=== PATIENT | female | born 2000 | race Caucasian/White ===

== ENCOUNTER 2021-11-18 14:55 | Inpatient (IN) | payer OTHER ==
[2021-11-18 17:07] VITALS: BMI 20.7
[2021-11-18] MEDS ORDERED: cloNIDine HCL 0.1 MG TABLET PO PRN (19:39)
[2021-11-18] MEDS ORDERED: BENZOCAINE/MENTHOL (CHLORASEPTIC ) LOZENGE MM PRN (19:39)
[2021-11-18] MEDS ORDERED: LOPERAMIDE HCL 2 MG CAPSULE PO PRN (19:39)
[2021-11-18] MEDS ORDERED: DICYCLOMINE HCL 10 MG CAPSULE PO PRN (19:39)
[2021-11-18] MEDS ORDERED: MAGNESIUM CITRATE 300 ML BOTTLE PO PRN (19:39)
[2021-11-18] MEDS ORDERED: methaDONE HCL 10 MG TABLET (FOR DETOX USE ONLY) PO ONE (19:39)
[2021-11-18] MEDS ORDERED: MAGNESIUM HYDROX 2400MG/30ML ORAL SUSPENSION 30 ML CUP PO PRN (19:39)
[2021-11-18] MEDS ORDERED: IBUPROFEN 400 MG TABLET (FP) PO PRN (19:39)
[2021-11-18] MEDS ORDERED: ONDANSETRON *ODT* 4 MG TABLET SL PRN (19:39)
[2021-11-18] MEDS ORDERED: ACETAMINOPHEN 325 MG TABLET (FP) PO PRN (19:39)
[2021-11-18] MEDS ORDERED: MAG HYDROX/AL HYDROX/SIMETH 30 ML UNIT-DOSE CUP PO PRN (19:39)
[2021-11-18] MEDS ORDERED: BISMUTH SUBSALICYLATE 524 MG/30 ML PO PRN (19:39)
[2021-11-18] MEDS: MELATONIN 5 MG TABLETS PO SCH (23:33)
[2021-11-18] MEDS: diazePAM 5 MG TABLET PO SCH (23:34)
[2021-11-18] MEDS: THIAMINE HCL 100 MG TABLET (FP) PO SCH (23:35)
[2021-11-18] MEDS: ACETAMINOPHEN 325 MG TABLET (FP) PO PRN (23:35)
[2021-11-19] MEDS: diazePAM 5 MG TABLET PO SCH ×4 (06:42→22:24)
[2021-11-19 10:05] LABS: HEMATOCRIT 39.5 % (32.4-45.2); HEMOGLOBIN 13.7 GM/dL (10.7-15.3); MCH 30.2 pg (25.7-33.7); MCHC 34.7 g/dl (32.0-36.0); MEAN CELL VOLUME 87.1 fl (80-96); MEAN PLT VOLUME 9.4 fl (7.5-11.1); PLATELET COUNT 220 10^3/uL (134-434); RBC 4.53 M/mm3 (3.60-5.2); RDW 13.4 % (11.6-15.6)
[2021-11-19] MEDS: PRENATAL VITAMINS W/ FOLIC ACID TABLET (FP) PO SCH (10:12)
[2021-11-19 12:15] LABS: CALCIUM 9.3 mg/dL (8.5-10.1)
[2021-11-19 12:16] LABS: ALBUMIN 4.1 g/dl (3.4-5.0); BLOOD UREA NITROGEN 20.8 mg/dL (7-18)
[2021-11-19 12:19] LABS: CREATININE 0.9 mg/dL (0.55-1.3)
[2021-11-19 12:20] LABS: BILIRUBIN,TOTAL 1.1 mg/dL (0.2-1); TOT PROT 7.2 g/dl (6.4-8.2)
[2021-11-19] MEDS: NICOTINE 10 MG CARTRIDGE (INHALER) IH PRN (20:27)
[2021-11-19] MEDS: THIAMINE HCL 100 MG TABLET (FP) PO SCH (22:24)
[2021-11-19] MEDS: MELATONIN 5 MG TABLETS PO SCH (22:24)
[2021-11-20] MEDS: diazePAM 5 MG TABLET PO SCH ×3 (05:55→22:05)
[2021-11-20] MEDS ORDERED: methaDONE HCL 10 MG TABLET (FOR DETOX USE ONLY) PO ONE (10:00)
[2021-11-20] MEDS: METHOCARBAMOL 500 MG TABLET PO PRN ×2 (10:35→22:04)
[2021-11-20] MEDS: diazePAM 5 MG TABLET PO PRN ×2 (10:35→17:39)
[2021-11-20] MEDS: PRENATAL VITAMINS W/ FOLIC ACID TABLET (FP) PO SCH (10:36)
[2021-11-20] MEDS: THIAMINE HCL 100 MG TABLET (FP) PO SCH (22:05)
[2021-11-20] MEDS: MELATONIN 5 MG TABLETS PO SCH (22:05)
[2021-11-21] MEDS: diazePAM 5 MG TABLET PO SCH ×2 (06:07→17:30)
[2021-11-21] MEDS: diazePAM 5 MG TABLET PO PRN ×2 (08:48→13:23)
[2021-11-21] MEDS: METHOCARBAMOL 500 MG TABLET PO PRN ×3 (08:48→23:35)
[2021-11-21] MEDS: PRENATAL VITAMINS W/ FOLIC ACID TABLET (FP) PO SCH (10:15)
[2021-11-21] MEDS ORDERED: cloNIDine HCL 0.1 MG TABLET PO PRN (11:04)
[2021-11-21] MEDS: hydrOXYzine PAMOATE 25 MG CAPSULE (FP) PO PRN (11:28)
[2021-11-21] MEDS: ACETAMINOPHEN 325 MG TABLET (FP) PO PRN (12:30)
[2021-11-21] MEDS: IBUPROFEN 600 MG TABLET (FP) PO PRN ×2 (15:50→23:35)
[2021-11-21 18:07] VITALS: RESP 18
[2021-11-21] MEDS: THIAMINE HCL 100 MG TABLET (FP) PO SCH (23:28)
[2021-11-21] MEDS: MELATONIN 5 MG TABLETS PO SCH ×2 (23:28→23:35)
[2021-11-22] MEDS ORDERED: diazePAM 5 MG TABLET PO ONE (06:00)
[2021-11-22] MEDS: METHOCARBAMOL 500 MG TABLET PO PRN (08:33)
[2021-11-22] MEDS: hydrOXYzine PAMOATE 25 MG CAPSULE (FP) PO PRN (08:33)
[2021-11-22 08:46] VITALS: BP 95/60; PULSE 112; TEMP 98.1
[2021-11-22] MEDS: NICOTINE 10 MG CARTRIDGE (INHALER) IH PRN (08:59)
[2021-11-22] MEDS ORDERED: methaDONE HCL 10 MG TABLET (FOR DETOX USE ONLY) PO ONE (10:00)
[2021-11-22] MEDS: PRENATAL VITAMINS W/ FOLIC ACID TABLET (FP) PO SCH (10:08)
== END 2021-11-22 10:37 | disposition home or self-care (01) | DRG 773 ==
LOC: YASAS 14:55 → Y3N 22:55
PROVIDERS: ADMIT Allergy & Immunology; ATTEND Surgery
PROC: HZ2ZZZZ Detoxification Services for Substance Abuse Treatment (ICD-10-PCS; principal; 2021-11-18)
DX: F11.23 Opioid dependence with withdrawal (principal); F10.230 Alcohol dependence with withdrawal, uncomplicated; F13.230 Sedative, hypnotic or anxiolytic dependence with withdrawal, uncomplicated; F14.10 Cocaine abuse, uncomplicated; F19.24 Other psychoactive substance dependence with psychoactive substance-induced mood disorder; F41.9 Anxiety disorder, unspecified; F41.0 Panic disorder [episodic paroxysmal anxiety]; F32.A Depression, unspecified; Z87.891 Personal history of nicotine dependence
CPT/HCPCS: 36415; 80053; 81025; 85027; 86780; 87811; 93005; 93010; C9803-CS; U0003; U0005

== ENCOUNTER 2023-10-29 12:45 | Inpatient (IN) | payer OTHER ==
[2023-10-29 13:29] VITALS: BMI 21.2
[2023-10-29] MEDS ORDERED: ONDANSETRON *ODT* 4 MG TABLET SL PRN (13:30)
[2023-10-29] MEDS ORDERED: IBUPROFEN 400 MG TABLET (FP) PO PRN (13:30)
[2023-10-29] MEDS ORDERED: MAGNESIUM HYDROX 2400MG/30ML ORAL SUSPENSION 30 ML CUP PO PRN (13:30)
[2023-10-29] MEDS ORDERED: DICYCLOMINE HCL 10 MG CAPSULE PO PRN (13:30)
[2023-10-29] MEDS ORDERED: LOPERAMIDE HCL 2 MG CAPSULE PO PRN (13:30)
[2023-10-29] MEDS ORDERED: P-EPHED 60MG/TRIPROLIDI 2.5MG TABLET PO PRN (13:30)
[2023-10-29] MEDS ORDERED: BENZONATATE 200 MG CAPSULE PO PRN (13:30)
[2023-10-29] MEDS ORDERED: BENZOCAINE/MENTHOL (CHLORASEPTIC ) LOZENGE MM PRN (13:30)
[2023-10-29] MEDS ORDERED: IBUPROFEN 600 MG TABLET (FP) PO PRN (13:30)
[2023-10-29] MEDS ORDERED: POLYETHYLENE GLYCOL (HEALTHYLAX) 3350 17 GM PACKET PO PRN (13:30)
[2023-10-29] MEDS ORDERED: BISMUTH SUBSALICYLATE 524 MG/30 ML PO PRN (13:30)
[2023-10-29] MEDS ORDERED: MAG HYDROX/AL HYDROX/SIMETH 30 ML UNIT-DOSE CUP PO PRN (13:30)
[2023-10-29] MEDS ORDERED: NALOXONE (NARCAN) HCL 4 MG/0.1 ML SPRAY NS PRN (13:30)
[2023-10-29] MEDS ORDERED: guaiFENesin 600 MG TABLET.ER (FP) PO PRN (13:30)
[2023-10-29] MEDS ORDERED: NALOXONE HCL 0.4 MG/ML VIAL IM PRN (13:30)
[2023-10-29] MEDS: MELATONIN 5 MG TABLETS PO SCH (22:49)
[2023-10-29] MEDS: THIAMINE 100 MG TABLET PO SCH (22:50)
[2023-10-30] MEDS ORDERED: cloNIDine HCL 0.1 MG TABLET PO PRN (09:57)
[2023-10-30] MEDS: methaDONE HCL 10 MG TABLET (FOR DETOX USE ONLY) PO ONE (10:37)
[2023-10-30] MEDS: PRENATAL VITAMINS W/ FOLIC ACID TABLET (FP) PO SCH (10:41)
[2023-10-30 11:54] LABS: HEMOGLOBIN 13.3 GM/dL (10.7-15.3); MCH 29.1 pg (25.7-33.7); MEAN CELL VOLUME 85.7 fl (80-96); MEAN PLT VOLUME 8.6 fl (7.5-11.1); PLATELET COUNT 359 10^3/uL (134-434); RBC 4.55 M/mm3 (3.60-5.2); WHITE BLOOD COUNT 10.7 K/mm3 (4.0-10.0)
[2023-10-30 12:07] LABS: CHLORIDE 105 mmol/L (98-107); POTASSIUM 3.7 mmol/L (3.5-5.1); SODIUM 139 mmol/L (136-145)
[2023-10-30 12:10] LABS: CALCIUM 9.8 mg/dL (8.5-10.1)
[2023-10-30 12:11] LABS: ALBUMIN 4.5 g/dl (3.4-5.0); ANION GAP 11 mmol/L (4-13); BLOOD UREA NITROGEN 22.9 mg/dL (7-18); CO2 24 mmol/L (21-32); GLUCOSE,RANDOM 97 mg/dL (74-106)
[2023-10-30 12:14] LABS: CREATININE 0.7 mg/dL (0.55-1.3); SGOT/AST 18 U/L (15-37); SGPT/ALT 28 U/L (13-61)
[2023-10-30 12:15] LABS: BILIRUBIN,TOTAL 0.8 mg/dL (0.2-1); TOT PROT 7.9 g/dl (6.4-8.2)
[2023-10-30 12:17] LABS: ALK PHOS 53 U/L (45-117)
[2023-10-30] MEDS: hydrOXYzine PAMOATE 25 MG CAPSULE (FP) PO PRN (22:56)
[2023-10-31] MEDS: methaDONE HCL 10 MG TABLET (FOR DETOX USE ONLY) PO ONE (10:40)
[2023-11-01] MEDS ORDERED: methaDONE HCL 10 MG TABLET (FOR DETOX USE ONLY) PO ONE (10:00)
[2023-11-01] MEDS: METHOCARBAMOL 500 MG TABLET PO PRN (22:15)
[2023-11-02] MEDS: methaDONE HCL 10 MG TABLET (FOR DETOX USE ONLY) PO ONE (10:17)
[2023-11-02] MEDS: ACETAMINOPHEN 325 MG TABLET (FP) PO PRN (10:19)
[2023-11-03] MEDS ORDERED: methaDONE HCL 10 MG TABLET (FOR DETOX USE ONLY) PO ONE ×2 (10:00)
[2023-11-03 20:47] VITALS: TEMP 98.6
[2023-11-04 06:28] VITALS: BP 112/64; PULSE 70; RESP 17
== END 2023-11-04 09:23 | disposition home or self-care (01) | DRG 773 ==
LOC: YASAS 12:45 → Y3N 13:40
PROVIDERS: ADMIT Allergy & Immunology; ATTEND Surgery
PROC: HZ2ZZZZ Detoxification Services for Substance Abuse Treatment (ICD-10-PCS; principal; 2023-10-29)
DX: F11.23 Opioid dependence with withdrawal (principal); F12.20 Cannabis dependence, uncomplicated; U07.0 Vaping-related disorder; F41.9 Anxiety disorder, unspecified; R53.83 Other fatigue; Z86.73 Personal history of transient ischemic attack (TIA), and cerebral infarction without residual deficits; Z56.0 Unemployment, unspecified
CPT/HCPCS: 36415; 80053; 80305; 80307; 85027; 86780; 86803; 93005; 93010